=== PATIENT | male | born 1945 | race Caucasian/White ===

== ENCOUNTER 2017-04-01 05:53 | Emergency (ER) | payer OTHER ==
[~2017-04-01] VITALS: Ht 175.3 cm; Wt 71.3 kg
[2017-04-01] MEDS ORDERED: PROAIR RESPICL90 MCG IH (08:55)
[2017-04-01] MEDS ORDERED: PREDNISONE20 MG PO (08:55)
[2017-04-01 09:24] VITALS: BP 134/82
== END 2017-04-01 09:26 | disposition home or self-care (01) ==
LOC: EME 05:53
PROVIDERS: Nurse Practitioner Family
DX: J10.1 Influenza due to other identified influenza virus with other respiratory manifestations (principal); J40 Bronchitis, not specified as acute or chronic
CPT/HCPCS: 71046; 87502; 94640 76; 99281; 99285